=== PATIENT | female | born 1950 | race Caucasian/White ===

== ENCOUNTER 2017-04-05 11:57 | Emergency (ER) | payer OTHER ==
--- NOTE | 2017-04-05 12:14 | PDOC ---
History of Present Illness - General Chief Complaint: Injury Stated Complaint: FALL,LACERATION Time Seen by Provider: 04/05/17 11:58 - History of Present Illness Initial Comments: 04/05/17 13:38 Chief complaint multiple injuries due to a fall. History of present illness: Patient tripped at work, fell forward onto her face , injuring her nose, right thumb, left knee, and forehead. She is on Eliquis for A. fib She complains of pain and a sensation of instability in her left knee, pain over the thenar eminence of the right thumb, and the laceration of the forehead where her glasses were pushed into her skin. Review of systems: Denies visual or focal neurologic symptoms or unsteadiness of gait. Denies chest pain or chest injury, shortness of breath, abdominal pain , pelvic pain, pain or stiffness of the spine. She is limping due to pain and the sensation of instability in her left knee. Remainder systems reviewed and otherwise negative Past medical history: Atrial fibrillation, high blood pressure, hypothyroidism, depression, seasonal ALLERGIES Medications: Verapamil, furosemide, eliquis, Cozaar, Synthroid, Effexor, Wellbutrin, Zyrtec. ALLERGIES: Morphine, penicillin, metoprolol, and shellfish Social history: No tobacco alcohol or drugs. Ambulatory, without significant disability Family history: Reviewed and noncontributory Physical exam: Alert and oriented 3, moderately obese, no acute distress, cheerful and cooperative Head atraumatic. There is no sign of contusion, hematoma, ecchymosis, or skin injury to the scalp 1 cm transverse superficial laceration of the right forehead just above the medial border of the eyebrow. No bleeding or hematoma. No orbital tenderness or deformity. Swelling and ecchymosis over the bridge of the nose. Dried blood in both nostrils, no active bleeding. Ears and throat clear Neck with full range of motion without pain. No point tenderness or deformity of the cervical spine Lungs clear with full breath sounds throughout bilaterally. No chest wall or rib cage tenderness or deformity Abdomen soft nontender without mass or organomegaly No pelvic or spine deformity or tenderness Extremities: Mild tenderness without swelling or deformity over the thenar eminence of the right hand. Ecchymosis over the patella, left knee, with small effusion. Patella and patellar retinaculum intact. No stress tenderness or instability of the MCL or LCL. Examination of the ACL is limited due to guarding and spasm. Superficial abrasion over the patella. Superficial abrasion of the right forearm. Range of motion of the hips is full without pain. Range of motion of the shoulders full without pain. Neurological C2 to 12 intact. Strength full and symmetric. No focal sensory or motor deficits. There is a limp due to pain in the left knee but ambulation is adequate and stable. Impression: Head and facial injury, on anticoagulants. Knee and thumb injury, multiple abrasions. Plan: At CT, x-rays of the nasal bones, right thumb, and left knee. Further medical and orthopedic management as indicated. Past History - Past Medical History Allergies/Adverse Reactions: Allergies Allergy/AdvReac Type Severity Reaction Status Date / Time morphine Allergy Mild Verified 01/11/12 20:19 Penicillins Allergy Mild Verified 01/11/12 20:19 metoprolol Allergy SOB Verified 04/05/17 11:59 shellfish derived Allergy Verified 04/05/17 11:59 Home Medications: Ambulatory Orders Levothyroxine [Synthroid] 150 mcg PO DAILY 01/11/12 Losartan Potassium [Cozaar] 100 mg PO DAILY 01/11/12 Venlafaxine HCl [Effexor] 450 mg PO DAILY 01/11/12 Verapamil HCl ER [Calan Sr] 240 mg PO BID 01/11/12 Apixaban [Eliquis] 5 mg PO BID 04/05/17 Bupropion HCl [Wellbutrin -] 100 mg PO BID 04/05/17 Cetirizine HCl [Zyrtec -] 10 mg PO DAILY 04/05/17 Furosemide [Lasix] 40 mg PO DAILY 04/05/17 Cardiac Disorders: Yes Thyroid Disease: Yes - Immunization History Immunization Up to Date: Yes - Psycho/Social/Smoking Cessation Hx Anxiety: Yes Suicidal Ideation: No Smoking Status: No Smoking History: Never smoked Number of Cigarettes Smoked Daily: 0 Medical Decision Making - Medical Decision Making 04/05/17 13:[address] is negative. X-rays of the right thumb and left knee in the area of injuries negative. There does appear to be an old fracture of the distal phalanx of the thumb, but there is no swelling or tenderness in this area on clinical exam. Procedure note: Repair of facial laceration Forehead laceration was scrubbed and irrigated with normal saline and explored. It was found to be superficial, involving only the skin. Repair was undertaken with skin adhesive, with good edge approximation. Wound care discussed. Rene wrap was applied to the left knee and a cane was used for ambulation. The patient was ambulating adequately upon discharge with her friend. She is kept out of work and instructed to follow-up with ENT and orthopedics as directed, or return to ER if further symptoms develop, especially as related to the head and neurologic system. 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, and seems to understand the follow-up *DC/Admit/Observation/Transfer Diagnosis at time of Disposition: Multiple abrasions Fractured nasal bones Qualifiers: Encounter type: initial encounter Fracture type: closed Qualified Code(s): S02.2XXA - Fracture of nasal bones, initial encounter for closed fracture Knee sprain Qualifiers: Encounter type: initial encounter Involved ligament of knee: unspecified ligament Laterality: left Qualified Code(s): S83.92XA - Sprain of unspecified site of left knee, initial encounter Contusion, thumb Qualifiers: Encounter type: initial encounter Damage to nail status: without damage Laterality: right Qualified Code(s): S60.011A - Contusion of right thumb without damage to nail, initial encounter Facial laceration Qualifiers: Encounter type: initial encounter Qualified Code(s): S01.81XA - Laceration without foreign body of other part of head, initial encounter - Discharge Dispostion Disposition: HOME Condition at time of disposition: Improved Admit: No - Referrals Referrals: Rhett Qiu MD [Staff Physician] - Shine Virgen MD [Staff Physician] - - Patient Instructions Printed Discharge Instructions: DI for Closed Head Injury, DI for Knee Sprain Additional Instructions: Use ice to nose, hand, and knee. Rest and elevate the left leg. Tylenol for pain Follow up with ENT specialist and orthopedist as directed. Return to ER if there are any further symptoms. - Post Discharge Activity Work/School Note: Back to Work
[2017-04-05 12:31] VITALS: BP 148/90; PULSE 87; TEMP 98; BMI 38.7
[2017-04-05] MEDS ORDERED: DIPHTH,PERTUSS(ACELL),TET 0.5 ML DISP.SYRIN IM ONE (13:06)
== END 2017-04-05 13:27 | disposition home or self-care (01) ==
LOC: FER 11:57
PROC: 3E0234Z Introduction of Serum, Toxoid and Vaccine into Muscle, Percutaneous Approach (ICD-10-PCS; principal; 2017-04-05)
DX: S02.2XXA Fracture of nasal bones, initial encounter for closed fracture (principal); S83.92XA Sprain of unspecified site of left knee, initial encounter; S60.011A Contusion of right thumb without damage to nail, initial encounter; S01.81XA Laceration without foreign body of other part of head, initial encounter; T14.8 Other injury of unspecified body region; W19.XXXA Unspecified fall, initial encounter; Y93.9 Activity, unspecified; Y92.9 Unspecified place or not applicable; Y99.0 Civilian activity done for income or pay; Y99.9 Unspecified external cause status; I48.91 Unspecified atrial fibrillation; E03.9 Hypothyroidism, unspecified; I51.9 Heart disease, unspecified; F41.9 Anxiety disorder, unspecified; Z79.01 Long term (current) use of anticoagulants; I10 Essential (primary) hypertension; J30.2 Other seasonal allergic rhinitis
CPT/HCPCS: 70160-TC; 70450-TC; 73140-TC-RT; 73560-TC-LT; 90715; 99282-25

== ENCOUNTER 2017-04-14 16:20 | Emergency (ER) | payer OTHER ==
--- NOTE | 2017-04-14 16:27 | PDOC ---
Attending Attestation - Resident Resident Name: Ethan Yousif - ED Attending Attestation I have performed the following: I have examined & evaluated the patient, The case was reviewed & discussed with the resident, I agree w/resident's findings & plan, Exceptions are as noted - HPI HPI: 66 yo F history afib (on eliquis) presents with tender R breast s/p fall on 04/05. She states that she noted some bruising to the area, and it has been progressing, but has not completely resolved. Denies fever, drainage. No open skin lesions. During the same fall she broke her nose and has bruising to her face that is still healing. - Physicial Exam PE: GENERAL: Awake, alert, and fully oriented, in no acute distress HEAD: Ecchymoses to nose and cheeks c/w healing injuries. EYES: PERRLA, EOMI, sclera anicteric, conjunctiva clear ENT: Auricles normal inspection, hearing grossly normal, nares patent, oropharynx clear without exudates. Moist mucosa NECK: Normal ROM, supple, no lymphadenopathy, JVD, or masses LUNGS: Breath sounds equal, clear to auscultation bilaterally. No wheezes, and no crackles HEART: Regular rate and rhythm, normal S1 and S2, no murmurs, rubs or gallops ABDOMEN: Soft, nontender, normoactive bowel sounds. No guarding, no rebound. No masses EXTREMITIES: Normal range of motion, no edema. No clubbing or cyanosis. No cords , erythema, or tenderness NEUROLOGICAL: Cranial nerves II through XII grossly intact. Normal speech, normal gait SKIN: Warm, Dry, normal turgor, no rashes or lesions noted. BREAST: R breast with ecchymotic area to the inferomedial portion. Nontender to palpation, but firm. - Medical Decision Making Breast sono ordered, as the area is firm. Would r/o any mass, as she has history of breast mass in the past. If wnl, stable for DC home.
[2017-04-14 16:28] VITALS: BP 161/69; PULSE 84; TEMP 98.5; BMI 38.7
--- NOTE | 2017-04-14 16:55 | PDOC ---
History of Present Illness - General Chief Complaint: Injury Stated Complaint: ECHYMOSIS RIGHT BREAST S/P FALL ON 04/05/17 Time Seen by Provider: 04/14/17 16:22 - History of Present Illness Initial Comments: 04/14/17 16:22 Ms. Mckee is a 66 year old female with a significant past medical history of [facility] who presents to the emergency department for evaluation of hematoma and mass progression on her chest after being treated for a fall April 05. She says that the mass is non-tender and is positive that it is brand new following her fall. The patient denies chest pain, shortness of breath beyond her normal afib level , headache and dizziness. Denies fever, chills, nausea, vomit, diarrhea and constipation. Denies dysuria, frequency, urgency and hematuria. Allergies: morphine, peniciillins, metoprolol, shellfish Past surgical history: pacemaker implantation, hysterectomy, , gastric bypass Social history: 20 pack year smoking history, drinks 1 glass wine approx. once/ month PMD - Aman Lopez 04/14/17 16:58 04/14/17 17:23 04/14/17 18:04 04/14/17 18:05 Past History - Past Medical History Allergies/Adverse Reactions: Allergies Allergy/AdvReac Type Severity Reaction Status Date / Time morphine Allergy Mild Verified 04/14/17 16:23 Penicillins Allergy Mild Verified 04/14/17 16:23 metoprolol Allergy SOB Verified 04/14/17 16:23 shellfish derived Allergy Verified 04/14/17 16:23 Home Medications: Ambulatory Orders Levothyroxine [Synthroid] 150 mcg PO DAILY 01/11/12 Losartan Potassium [Cozaar] 100 mg PO DAILY 01/11/12 Venlafaxine HCl [Effexor] 450 mg PO DAILY 01/11/12 Verapamil HCl ER [Calan Sr] 240 mg PO BID 01/11/12 Apixaban [Eliquis] 5 mg PO BID 04/05/17 Bupropion HCl [Wellbutrin -] 100 mg PO BID 04/05/17 Cetirizine HCl [Zyrtec -] 10 mg PO DAILY 04/05/17 Furosemide [Lasix] 40 mg PO DAILY 04/05/17 Cardiac Disorders: Yes Thyroid Disease: Yes - Immunization History Immunization Up to Date: Yes - Psycho/Social/Smoking Cessation Hx Anxiety: Yes Suicidal Ideation: No Smoking Status: No Smoking History: Never smoked Have you smoked in the past 12 months: No Number of Cigarettes Smoked Daily: 0 Hx Alcohol Use: No Drug/Substance Use Hx: No Substance Use Type: None Review of Systems - Review of Systems Comments:: 04/14/17 16:23 GENERAL/CONSTITUTIONAL: No fever or chills. No weakness. HEAD, EYES, EARS, NOSE AND THROAT: No change in vision. No ear pain or discharge. No sore throat. CARDIOVASCULAR: +Reports her "normal" chest pain with her a-fib. No chest pain accept at ecchimosis site RESPIRATORY: No cough, wheezing, or hemoptysis. GASTROINTESTINAL: No nausea, vomiting, diarrhea or constipation. GENITOURINARY: No dysuria, frequency, or change in urination. MUSCULOSKELETAL: +R wrist, L knee pain checked out on the 5th that has not changed. No neck or back pain. SKIN: No rash NEUROLOGIC: No headache, vertigo, loss of consciousness, or change in strength/ sensation. ENDOCRINE: No increased thirst. No abnormal weight change HEMATOLOGIC/LYMPHATIC: +prone to bleeding on eloquist, no anemia or history of blood clots. ALLERGIC/IMMUNOLOGIC: No hives or skin allergy. 04/14/17 17:03 04/14/17 17:05 04/14/17 18:05 *Physical Exam - Physical Exam Comments: 04/14/17 16:23 GENERAL: Awake, alert, and fully oriented, in no acute distress HEAD: +Raccoon sign noted post facial fracture, normocephalic, atraumatic EYES: PERRLA, EOMI, sclera anicteric, conjunctiva clear ENT: Auricles normal inspection, hearing grossly normal, nares patent, oropharynx clear without exudates. Moist mucosa NECK: Normal ROM, supple, no lymphadenopathy, JVD, or masses LUNGS: No distress, speaks full sentences, clear to auscultation bilaterally HEART: Regular rate and rhythm, normal S1 and S2, no murmurs, rubs or gallops, peripheral pulses normal and equal bilaterally. ABDOMEN: Soft, nontender, normoactive bowel sounds. No guarding, no rebound. No masses EXTREMITIES: +R wrist in brace for possible fracture, L knee pain from fall as well, Normal inspection, Normal range of motion, no edema. No clubbing or cyanosis. NEUROLOGICAL: Cranial nerves II through XII grossly intact. Normal speech, normal gait, no focal sensorimotor deficits SKIN: Warm, Dry, normal turgor, no rashes or lesions noted. 04/14/17 16:58 04/14/17 17:04 04/14/17 17:05 04/14/17 18:05 Medical Decision Making - Medical Decision Making 04/14/17 17:23 Ms. Mckee presented for evaluation of R breast mass she recently noted under bruising from her recent fall. She is in no acute distress and follow-ed up as she is on eloquist and concerned for the potential for further bleeding. Plan to US breast for evaluation of mass. 04/14/17 18:05 US findings consistent with hematoma. Will refer to breast surgeon for follow- up as needed. Electing to not drain as eloquist could cause prolonged bleeding. *DC/Admit/Observation/Transfer Diagnosis at time of Disposition: Hematoma - Discharge Dispostion Disposition: HOME Condition at time of disposition: Stable - Referrals Referrals: Kimberly Mcintosh MD [Staff Physician] - - Patient Instructions Additional Instructions: Please follow-up with Breast surgery if mass persists or gets bigger. Present to ER if any increased pain or fever. - Attestations Physician Attestion: 04/14/17 17:26 I, Dr. Ethan Yousif, attest that this document has been prepared under my direction and personally reviewed by me in its entirety. I further attest, that it accurately reflects all work, treatment, procedures and medical decision -making performed by me.
== END 2017-04-14 18:19 | disposition home or self-care (01) ==
LOC: FER 16:20
DX: S20.01XA Contusion of right breast, initial encounter (principal); W18.30XA Fall on same level, unspecified, initial encounter; Y93.9 Activity, unspecified; Y92.9 Unspecified place or not applicable; Z79.01 Long term (current) use of anticoagulants; I48.91 Unspecified atrial fibrillation; E07.9 Disorder of thyroid, unspecified; F41.9 Anxiety disorder, unspecified
CPT/HCPCS: 76642-TC-RT; 99282-25

== ENCOUNTER 2023-01-16 21:14 | Observation (INO) | payer OTHER ==
[2023-01-16 21:39] LABS: MCH 30.5 pg (25.7-33.7); MCHC 32.6 g/dl (32.0-36.0); MEAN CELL VOLUME 93.7 fl (80-96); MEAN PLT VOLUME 8.2 fl (7.5-11.1); PLATELET COUNT 335.4 10^3/uL (134-434); RBC 4.27 10^6/uL (3.60-5.2); RDW 14.3 % (11.6-15.6); WHITE BLOOD COUNT 9.4 10^3/uL (4.0-10.8)
[2023-01-16 21:55] LABS: BILIRUBIN,TOTAL 0.5 mg/dl (0.2-1); CREATININE 2.5 mg/dl (0.55-1.3); TOT PROT 7.5 g/dl (6.4-8.2)
[2023-01-16] MEDS ORDERED: POTASSIUM CHLORIDE TABS 20 MEQ TABLET.ER (FP) PO ONE ×2 (21:58→22:08)
[2023-01-16 22:07] LABS: PLATELET ESTIMATE ADEQUATE
[2023-01-16] MEDS ORDERED: SODIUM CHLORIDE 1,000 ML IV STA (22:24)
[2023-01-16] MEDS ORDERED: ACETAMINOPHEN 325 MG TABLET (FP) PO PRN (23:23)
[2023-01-16 23:35] LABS: MAGNESIUM 2.3 mg/dL (1.8-2.4); PHOSPHOROUS 4.9 mg/dl (2.5-4.9)
[2023-01-16] MEDS: VERAPAMIL HCL 240 MG E.R. TABLET PO SCH (23:35)
[2023-01-16] MEDS ORDERED: KCL 10 MEQ IVPB 10 MEQ/100 ML INFUS.BAG IVPB SCH (23:45)
[2023-01-16 23:54] LABS: ACTIVATED PTT 33.2 SECONDS (25.2-36.5); INR 1.51 (0.83-1.09); PROTHROMBIN TIME (PATIENT) 17.4 SEC (9.7-13.0)
[2023-01-17 04:32] VITALS: BMI 30.2
[2023-01-17] MEDS: LEVOTHYROXINE 150 MCG, LEVOTHYROXINE 25 MCG PO SCH (06:35)
[2023-01-17 09:23] VITALS: RESP 18
[2023-01-17 09:44] LABS: HEMATOCRIT 33.1 % (32.4-45.2); HEMOGLOBIN 11.1 G/dL (10.7-15.3); MCH 31.6 pg (25.7-33.7); MCHC 33.4 g/dl (32.0-36.0); MEAN CELL VOLUME 94.5 fl (80-96); MEAN PLT VOLUME 8.2 fl (7.5-11.1); PLATELET COUNT 304.2 10^3/uL (134-434); RDW 14.6 % (11.6-15.6)
[2023-01-17] MEDS: ALLOPURINOL 100 MG TABLET (FP) PO SCH (09:59)
[2023-01-17] MEDS: VERAPAMIL HCL 240 MG E.R. TABLET PO SCH ×2 (09:59→21:34)
[2023-01-17] MEDS: APIXABAN 5 MG TABLET PO SCH ×2 (10:00→21:36)
[2023-01-17] MEDS ORDERED: VENLAFAXINE HCL 100 MG TABLET PO SCH (10:00)
[2023-01-17] MEDS ORDERED: LEVOTHYROXINE NA 200 MCG TABLET PO SCH (10:00)
[2023-01-17] MEDS ORDERED: FUROSEMIDE 40 MG TABLET (FP) PO SCH (10:00)
[2023-01-17 10:01] LABS: CALCIUM 9.1 mg/dl (8.5-10)
[2023-01-17] MEDS: SODIUM CHLORIDE 1,000 ML IV SCH (21:35)
[2023-01-18 06:18] VITALS: PULSE 58
[2023-01-18] MEDS: LEVOTHYROXINE 150 MCG, LEVOTHYROXINE 25 MCG PO SCH (06:20)
[2023-01-18 08:56] LABS: ALBUMIN 3.1 g/dl (3.4-5.0); BILIRUBIN,TOTAL 0.3 mg/dl (0.2-1); CALCIUM 8.9 mg/dl (8.5-10); CREATININE 1.7 mg/dl (0.55-1.3); MAGNESIUM 2.2 mg/dL (1.8-2.4); PHOSPHOROUS 2.7 mg/dl (2.5-4.9); TOT PROT 5.9 g/dl (6.4-8.2)
[2023-01-18 09:14] VITALS: BP 98/38; TEMP 97.6
[2023-01-18] MEDS: ALLOPURINOL 100 MG TABLET (FP) PO SCH (09:22)
[2023-01-18] MEDS: VERAPAMIL HCL 240 MG E.R. TABLET PO SCH (09:22)
[2023-01-18] MEDS: APIXABAN 5 MG TABLET PO SCH (09:23)
[2023-01-18] MEDS: SODIUM CHLORIDE 1,000 ML IV SCH (09:24)
[2023-01-18] MEDS ORDERED: POTASSIUM CHLORIDE ORAL LIQUID 20 MEQ/15 ML PO ONE (09:45)
[2023-01-18 09:48] LABS: BASO % 0.4 % (0-2.0); EOS % 4.8 % (0-4.5); HEMATOCRIT 28.7 % (32.4-45.2); HEMOGLOBIN 9.8 GM/dL (10.7-15.3); MCH 31.3 pg (25.7-33.7); MCHC 34.1 g/dl (32.0-36.0); MEAN CELL VOLUME 91.7 fl (80-96); MEAN PLT VOLUME 8.2 fl (7.5-11.1); MONO % 8.7 % (3.8-10.2); NEUT % 44.1 % (42.8-82.8); PLATELET COUNT 276 10^3/uL (134-434); RBC 3.13 M/mm3 (3.60-5.2); RDW 14.2 % (11.6-15.6); WHITE BLOOD COUNT 5.8 K/mm3 (4.0-10.0)
== END 2023-01-18 12:23 | disposition home or self-care (01) ==
LOC: FER 21:14 → FM/S 23:44
PROVIDERS: ADMIT Internal Medicine; ATTEND Internal Medicine
DX: R55 Syncope and collapse (principal); E87.1 Hypo-osmolality and hyponatremia; E87.6 Hypokalemia; I12.9 Hypertensive chronic kidney disease with stage 1 through stage 4 chronic kidney disease, or unspecified chronic kidney disease; N18.9 Chronic kidney disease, unspecified; N17.9 Acute kidney failure, unspecified; Z87.891 Personal history of nicotine dependence; I48.0 Paroxysmal atrial fibrillation; E03.9 Hypothyroidism, unspecified; M10.9 Gout, unspecified; S80.12XA Contusion of left lower leg, initial encounter; W18.39XA Other fall on same level, initial encounter; Y93.89 Activity, other specified; Y92.89 Other specified places as the place of occurrence of the external cause; I45.10 Unspecified right bundle-branch block; Z86.79 Personal history of other diseases of the circulatory system; Z95.810 Presence of automatic (implantable) cardiac defibrillator; Z79.01 Long term (current) use of anticoagulants; Z98.84 Bariatric surgery status; Z88.0 Allergy status to penicillin; Z88.5 Allergy status to narcotic agent; Z88.8 Allergy status to other drugs, medicaments and biological substances; Z91.013 Allergy to seafood
CPT/HCPCS: 0241U-QW; 36415; 70450-TC; 71045-TC-FY; 73562-TC-LT-FY; 80048; 80053; 81003; 82570; 83735; 84100; 84300; 84443; 84484; 85025; 85027; 85610; 85730; 87086; 93005; 93306-TC; 97116-GP; 97162-GP; 99285-25; G0378